=== PATIENT | male | born 1965 | race Hispanic/Latino ===

== ENCOUNTER 2018-06-05 06:27 | Day surgery (SDC) | payer OTHER ==
[2018-06-05] MEDS ORDERED: Lactated Ringer's 500 ML IV SCH (08:30)
[2018-06-05] MEDS ORDERED: Propofol 10 mg/ml Inj (20 ML) ONE ×2 (08:32→08:51)
[2018-06-05] MEDS ORDERED: Lactated Ringer's 500 ML IV ONE (08:32)
[2018-06-05] MEDS ORDERED: Lidocaine Hydrochloride 5 ML INJ ONE (09:01)
[2018-06-05 09:39] VITALS: TEMP 98.5
[2018-06-05 10:10] VITALS: O2SAT 99
[2018-06-05 11:23] VITALS: BP 112/67; PULSE 60; RESP 13
== END 2018-06-05 11:15 | disposition home or self-care (01) ==
LOC: C.ENDO 06:27
PROVIDERS: ATTEND Internal Medicine Gastroenterology
DX: Z12.11 Encounter for screening for malignant neoplasm of colon (principal); D12.0 Benign neoplasm of cecum; K64.8 Other hemorrhoids
CPT/HCPCS: 45380; 45384; 88305; J2704; J3010; J7120

== ENCOUNTER 2018-09-19 16:29 | Outpatient (CLI) | payer OTHER | END 2018-09-19 16:30 | disposition home or self-care (01) | LOC: C.MRIC 16:29 | DX: M25.562 Pain in left knee (principal) ==